=== PATIENT | male | born 1980 | race Caucasian/White ===

== ENCOUNTER 2020-11-26 07:27 | Emergency (ER) | payer MEDICAID ==
[~2020-11-26] VITALS: Ht 170.2 cm; Wt 71.2 kg
[2020-11-26 07:38] VITALS: Ht 170.2 cm; Wt 71.2 kg
[2020-11-26 07:58] LABS: microscopic required? NO
[2020-11-26 08:47] LABS: BASOPHIL % 0.6 % (0.2-1.5); PLATELET COUNT 214 x10^3mcL (152-348); RED CELL DISTRIBUTION WIDTH 13.2 % (12.1-16.2)
[2020-11-26 08:48] LABS: ALKALINE PHOSPHATASE 79 U/L (46-116); ALT/SGPT 41 U/L (16-63); AST/SGOT 34 U/L (15-37); BILIRUBIN TOTAL 0.42 mg/dL (0.20-1.00); CARBON DIOXIDE 26.4 mmol/L (21-32); CHLORIDE SERUM 105 mmol/L (98-107); CHOLESTEROL 140 mg/dL (<200); GFR1 > 60 mL/min; LIPASE 146 IU/L (73-393); POTASSIUM SERUM 4.1 mmol/L (3.5-5.1); SODIUM SERUM 139 mmol/L (136-145); TOTAL PROTEIN, SERUM 7.4 g/dL (6.4-8.2); TRIGLYCERIDES 165 mg/dL (<150)
[2020-11-26 09:17] LABS: CHOLESTEROL/HDL RATIO 4.2; HDL CHOLESTEROL 33 mg/dL (40-60)
[2020-11-26 09:20] LABS: GLUCOSE SERUM 53 mg/dL (74-106)
[2020-11-26] MEDS ORDERED: MOT600 PO (09:32)
[2020-11-26 09:35] VITALS: BP 125/66
[2020-11-26 10:14] LABS: UA SPECIFIC GRAVITY 1.015 (1.005-1.035); urine erythrocyte NEGATIVE (NEGATIVE)
== END 2020-11-26 09:35 | disposition home or self-care (01) ==
LOC: ED 07:27
PROVIDERS: Specialist
DX: M54.5 Low back pain (principal)
CPT/HCPCS: 87491; 87591